=== PATIENT | female | born 1980 | race African-American/Black ===

== ENCOUNTER 2023-07-02 18:21 | Emergency (ER) | payer OTHER, MEDICARE | END 2023-07-02 19:45 | disposition home or self-care (01) | LOC: CSHERS 18:21 | DX: R11.2 Nausea with vomiting, unspecified (principal); R19.7 Diarrhea, unspecified | CPT/HCPCS: 99283 ==

== ENCOUNTER 2024-03-21 17:00 | Emergency (ER) | payer OTHER, MEDICAID ==
[2024-03-21] MEDS ORDERED: Ondansetron ODT 4 MG TAB ONE (17:33)
[2024-03-21 18:33] LABS: #Basophils 0.04 10x3/uL (0.0-0.2); #Eosinophils 0.07 10x3/uL (0.0-0.5); #Monocytes 0.78 10x3/uL (0.0-1.1); #Neutrophils 6.15 10x3/uL (1.5-8.4); %Basophils 0.4 % (0.0-2.0); %Eosinophils 0.8 % (0.0-6.0); %Lymphocytes 22.8 % (18.0-47.0); %Monocytes 8.5 % (0.0-10.0); %Neutrophils 67.3 % (40.0-75.0); Hematocrit 42.4 % (34.9-44.5); Mean Corpuscular HGB CONC 30.7 g/dL (32.0-36.0); Mean Corpuscular Hemoglobin 26.6 pg (27.0-33.0); Mean Corpuscular Volume 86.9 fL (81.6-98.3); Platelet Count 400 10x3/uL (150-450); RBC Distribution Width 13.1 % (11.5-14.5); Red Blood Cell (RBC) Count 4.88 10x6/uL (3.90-5.03); White Blood Cell (WBC) Count 9.2 10x3/uL (3.5-10.5)
[2024-03-21 18:53] LABS: ALT (SGPT) 13 U/L (8-55); AST (SGOT) 15 U/L (5-34); Albumin 3.6 g/dL (3.5-5.0); Alkaline Phosphatase 99 U/L (40-110); Anion Gap 14 mmol/L (10-20); BUN (Urea Nitrogen) 10 mg/dL (7.0-18.7); Bilirubin, Total 0.5 mg/dL (0.2-1.2); Calc. Creatinine Clearance 0 mL/min (70-130); Calcium 9.2 mg/dL (7.8-10.44); Carbon Dioxide 24 mmol/L (22-29); Chloride 105 mmol/L (98-107); Estimated GFR 64; Globulin 4.4 g/dL (2.4-3.5); Glucose 99 mg/dL (70-105); Potassium 3.9 mmol/L (3.5-5.1); Sodium 139 mmol/L (136-145)
[2024-03-21 18:59] LABS: Bilirubin Neg (Negative); Blood, Urine Negative (Negative); Clarity Clear (Clear); Glucose, Urine (Dipstick) Normal (Negative); Ketone, Urine Negative (Negative); Leukocyte Negative (Negative); Nitrite Negative (Negative); Protein, Urine (Dipstick) Negative (Neg-Trace); Urobilinogen Normal mg/dL (Less than 2)
[2024-03-21 18:59] LABS: BHCG - Serum Negative (NEGATIVE); Pregs Control Background? CLEAR/WHITE (CLR/WHITE); Pregs Control Bar Appear? YES (CONTROL BAR)
[2024-03-21 19:06] LABS: Bacteria/HPF Rare-Few HPF (None Seen); CAUTI Indications for Culture Pelvic or flank pain; RBC/HPF 0-3 HPF (0-3); Squamous Epithelial 0-3 HPF (0-3); WBC/HPF 0-3 HPF (0-3)
[2024-03-21 19:07] LABS: Urine Culture Reflex No No
== END 2024-03-21 19:29 | disposition home or self-care (01) ==
LOC: CSHERS 17:00
DX: R53.1 Weakness (principal)
CPT/HCPCS: 81001; 82962; 84703; 99284; Q0162; 36415; 36416; 80053; 84443; 85025

== ENCOUNTER 2025-02-05 10:54 | Emergency (ER) | payer MEDICAID, OTHER ==
[2025-02-05] MEDS ORDERED: AFRIN NASAL MIST 15 ML BOT ONE (11:36)
== END 2025-02-05 11:40 | disposition home or self-care (01) ==
LOC: CSHERS 10:54
DX: R04.0 Epistaxis (principal)
CPT/HCPCS: 99283